=== PATIENT | female | born 1960 | race Caucasian/White ===

== ENCOUNTER → 2022-06-04 11:10 | Outpatient (CLI) | payer OTHER, SELFPAY ==
--- NOTE | ~2022-06-04 | CT_ITS ---
EXAMINATION: CT abdomen pelvis w con INDICATION: Left upper quadrant abdominal pain TECHNIQUE: Computed tomographic images of the abdomen and pelvis were obtained after the administrati on of 100 cc of Omnipaque 350 intravenous contrast. The dose-length product (DLP) was 309.39 mGy-cm. Automated exposure control and iterative reconstruction technique were employed. COMPARISON: None available FINDINGS: There is a 1.4 cm cyst of the left hepatic lobe. The spleen, gallbladder, and adrenal gland s are normal. There is an approximately 3.3 x 2.4 cm ill-defined mass in the body of pancreas with di latation of the pancreatic duct in the tail as well as atrophy of the pancreatic tail. 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 The kidneys are unremarkable. No pathologically enlarged abdominal or pelvic lymph n odes are identified. There is no free intraperitoneal gas or evidence of bowel obstruction. The appen xuan is normal. There is severe lumbar spondylosis at L2-3. A small umbilical hernia containing fat is noted. IMPRESSION: 1. Ill-defined mass in the body of the pancreas concerning for pancreatic adenocarcinoma. Further roro luation with MRCP and/or endoscopic ultrasound is recommended. These findings and recommendations were discussed with Dr. Sugey Quinn DO at 1513 hours on 06/04/2022. Reviewed, dictated and finalized at location B. IMPRESSION: 1. Ill-defined mass in the body of the pancreas concerning for pancreatic adeno carcinoma. Further evaluation with MRCP and/or endoscopic ultrasound is recomme nded. These findings and recommendations were discussed with Dr. Sugey Quinn DO at 1513 hours on 06/04/2022.
[2022-06-04 11:36] LABS: Estimated Glomerular Filt Rate > 60
== END ==
PROVIDERS: PCP Family Medicine; Visit Provider Family Medicine
DX: R10.12 Left upper quadrant pain (principal)
CPT/HCPCS: 74177; Q9967